=== PATIENT | male | born 1995 | race Caucasian/White ===

== ENCOUNTER 2024-02-07 03:14 | Emergency (ER) | payer SELFPAY ==
[~2024-02-07] VITALS: Ht 167.6 cm; Wt 72.0 kg
[2024-02-07 03:26] VITALS: BP 160/104; PULSE 107; RESP 14; TEMP 98.6; O2SAT 99
[2024-02-07 03:45] LABS: CLARITY URINE CLEAR (CLEAR); COLOR URINE YELLOW (YELLOW); GLUCOSE URINE NEGATIVE (NEGATIVE); KETONES URINE NEGATIVE (NEGATIVE); LEUKOCYTE ESTERASE URINE NEGATIVE (NEGATIVE); NITRITE URINE NEGATIVE (NEGATIVE); OCCULT BLOOD URINE NEGATIVE (NEGATIVE); PROTEIN URINE NEGATIVE (NEGATIVE); SPECIFIC GRAVITY URINE 1.011 (1.005-1.030); UROBILINOGEN URINE 0.2 E.U./dL (0.2-1.0)
[2024-02-07 04:15] LABS: BASOPHILS % 0.8 % (0.0-2.0); EOSINOPHILS % 0.9 % (0.0-5.0); HEMOGLOBIN. 15.4 g/dL (14.0-18.0); LYMPHOCYTES % 39.1 % (20.0-50.0); MEAN CORPUSCULAR HEMOGLOBIN 30.4 pg (28.0-32.0); MEAN CORPUSCULAR VOLUME 86.6 fL (80.0-94.0); MEAN PLATELET VOLUME 9.3 fl (7.4-10.4); NEUTROPHILS % 50.2 % (40.0-76.0); PLATELET 192 x1000/uL (130-400); RED BLOOD CELL COUNT 5.08 mill/uL (4.7-6.1); RED CELL DISTRIBUTION WIDTH 13.1 % (11.6-14.6); WHITE BLOOD COUNT 7.2 x1000/uL (4.5-11.0)
[2024-02-07 04:30] LABS: ALANINE AMINOTRANSFERASE 37 IU/L (10-49); ALBUMIN 5.2 g/dL (3.2-4.8); ASPARTATE AMINOTRANSFERASE 30 IU/L (<34); BILIRUBIN TOTAL 0.6 mg/dL (0.1-1.0); CALCIUM 9.5 mg/dL (8.7-10.4); CARBON DIOXIDE 24 mEq/L (21-32); CHLORIDE 106 mEq/L (98-107); CREATININE 1.1 mg/dL (0.6-1.3); GLUCOSE 88 mg/dL (70-105); POTASSIUM 3.3 mEq/L (3.5-5.1); PROTEIN TOTAL 8.2 g/dL (6.0-8.3); SODIUM 139 mEq/L (136-145); TROPONIN I HIGH SENSITIVITY 10 ng/L (3.0-53); UREA NITROGEN BLOOD 11 mg/dL (9-23)
[2024-02-07] MEDS ORDERED: LORAZEPAM 0.5MG TABLET PO ONE (08:30)
[2024-02-07] MEDS ORDERED: POTASSIUM CHLORIDE 20MEQ TABLET SR PO ONE (08:30)
[2024-02-07 09:33] LABS: TROPONIN I HIGH SENSITIVITY 10 ng/L (3.0-53)
[2024-02-07] MEDS: LORAZEPAM 0.5MG TABLET PO NR (09:52)
[2024-02-07] MEDS: POTASSIUM CHLORIDE 20MEQ TABLET SR PO NR (09:52)
== END 2024-02-07 13:09 | disposition home or self-care (01) ==
LOC: ER 04:09
DX: R07.9 Chest pain, unspecified (principal); Z91.018 Allergy to other foods
CPT/HCPCS: 36415; 71045; 80053; 81003; 84484; 85025; 93005; 99285

== ENCOUNTER 2025-05-07 19:17 | Emergency (ER) | payer SELFPAY ==
[~2025-05-07] VITALS: Ht 172.7 cm; Wt 82.0 kg
[2025-05-07 20:27] VITALS: O2SAT 98
[2025-05-07] MEDS ORDERED: SULF1TAB48 MT (22:48)
[2025-05-07] MEDS ORDERED: CEPH500T MT (22:48)
[2025-05-08] MEDS ORDERED: MUPI1OIN4 TP (00:39)
[2025-05-08] MEDS ORDERED: NAPR-1176 MT (00:42)
[2025-05-08] MEDS: KETOROLAC 15MG/ML VIAL IM ONE (01:09)
[2025-05-08 01:11] VITALS: BP 108/63; PULSE 85; RESP 12; TEMP 36.7; O2SAT 98
== END 2025-05-08 01:04 | disposition home or self-care (01) ==
LOC: ER 19:17
DX: M25.562 Pain in left knee (principal)
CPT/HCPCS: 73562; 93971; 99285